=== PATIENT | female | born 1970 | race Caucasian/White ===

== ENCOUNTER → 2016-11-06 | Outpatient (CLI) | payer BC ==
--- NOTE | 2016-11-06 14:26 | MAM ---
EXAM DESCRIPTION: MAMMO BREAST SCREENING BILATERAL CAD, images were reviewed with CAD technology, R2 computer-aided detection. CLINICAL HISTORY: [facility]. COMPARISON: 2012. FINDINGS: Routine views are obtained. Mian views are also performed for mammographically benign appearing bilateral subpectoral implants. Glandular tissue has a scattered contour with the increased mammographic density. No significant change in overall distribution appearance. No dominant mass, architectural distortion or clustered microcalcification.. IMPRESSION: Benign exam. BIRAD CATEGORY: 2 BENIGN RECOMMENDATIONS: FOLLOW-UP: Routine screening mammogram in one year. According to the [employer], yearly mammograms are recommended starting at age 40 and continuing as long as a woman is in good health. Any breast change noted on a breast self-exam should be reported promptly to the patient's healthcare provider. Breast MRI is recommended for women with an approximately 20-25% or greater lifetime risk of breast cancer, including women with a strong family history of breast or ovarian cancer and women who have been treated for Hodgkin's disease. Electronically signed by: Sharmila Gabriel 11/06/2016 14:24
== END ==
LOC: MAMMO 10:40
PROVIDERS: ATTEND Obstetrics & Gynecology
DX: Z12.31 Encounter for screening mammogram for malignant neoplasm of breast (principal)

== ENCOUNTER → 2017-11-14 | Outpatient (CLI) | payer BC ==
--- NOTE | 2017-11-15 09:30 | MAM ---
EXAM DESCRIPTION: 3D Screening BILATERAL : Digital Mammography. CLINICAL HISTORY: 47 years Female SCREENING . No family history of breast cancer. No complaints. Premenopausal. No HRT. Prior left breast cyst aspiration and biopsy. Bilateral breast augmentation. COMPARISON: Bilateral 2-D digital screening mammography with Mian images 11/06/2016 and 10/22/2015. Report from prior examination also reviewed. TECHNIQUE: Bilateral CC and MLO projection full-field images, with Mian Implant Displacement 3-D tomosynthesis digital mammographic technique. Also bilateral synthesized CC/ MLO full-field images. Also with Mian Implant Displacement, CAD not utilized. 2-D digital full-field images, MLO and CC projections bilaterally, non-displaced, with CAD. FINDINGS: The breast parenchymal density pattern is: Heterogeneously dense breast tissue, which may obscure small masses. No skin thickening or nipple retraction focal asymmetry in the anterior third of the left breast lower inner quadrant, approximately 3 cm from the nipple on the implant displaced images. Not associated with microcalcifications. Surgical change in architecture since the prior study. No focal, stellate mass or density, focal asymmetry , and no suspicious microcalcifications right breast. IMPRESSION: BI-RADS CATEGORY: 0 - INCOMPLETE- Need additional imaging evaluation. FOLLOW-UP: Recall for additional imagin-D tomosynthesis left breast full-field standard and implant displacement images. Targeted left breast ultrasound of the region of interest.. Written communication concerning the IMPRESSION and Follow-up, will be mailed to the patient and referring health care provider. Electronically signed by: Tervon Patel MD 11/15/2017 9:29 AM CRACKING UNIT OPERATOR
== END | disposition home or self-care (01) ==
LOC: MAMMO 09:30
PROVIDERS: ATTEND Family Medicine
DX: Z12.31 Encounter for screening mammogram for malignant neoplasm of breast (principal)

== ENCOUNTER → 2017-12-04 | Outpatient (CLI) | payer BC ==
--- NOTE | 2017-12-05 14:18 | US ---
EXAM DESCRIPTION: Breast,Left: Ultrasound CLINICAL HISTORY: 47 yearsFemaleABN MAMMO. Lower inner quadrant anterior left breast. Previous biopsies in this breast. Bilateral breast augmentation. COMPARISON: Digital 3-D tomosynthesis diagnostic left mammography on the same visit . 3-D tomosynthesis bilateral screening study 11/14/2017. TECHNIQUE: Transcutaneous scanning of the left breast utilizing two-dimensional and Doppler modes. Scanning performed by the social services specialist and Dr. Patel. FINDINGS: Scanning in the region of the 500 clock position of the left breast, 3 cm from the nipple. Multiple foci of heterogeneous fibroglandular tissues are noted surrounding a predominantly by fatty tissues. Parallel orientation. Variable posterior acoustic features or none at all. Also a hypoechoic elongated object with central echogenicity which is most likely a lymph node. No hypoechoic or complex appearing solid masses with antiparallel features or significant posterior acoustic shadowing. No discrete cysts or calcifications. No skin changes. Included capsule of the implant was unremarkable. IMPRESSION: 1. Bi-Rads Category 3: Probably Benign Findings. 2. Please refer to 3-D tomosynthesis bilateral diagnostic mammographic examination and report on this visit. The FINDINGS and the FOLLOW-UP plan were reviewed in person with the patient after the examination. Written communication explaining the IMPRESSION and FOLLOW-UP will be mailed to the patient and referring care provider. Electronically signed by: Trevon Patel MD 12/05/2017 2:17 PM [facility]
--- NOTE | 2017-12-05 14:19 | MAM ---
EXAM DESCRIPTION: Diagnostic Mammo,Left: Digital Mammography CLINICAL HISTORY: 47 yearsFemaleABNORMAL MAMMO focal asymmetry left breast on screening study last month. COMPARISON: 3-D tomosynthesis bilateral screening study 11/14/2017. Reports from prior examinations also reviewed. Targeted left breast ultrasound following this examination. TECHNIQUE: Left LM projection full-field images with Mian displacement technique, 3-D tomosynthesis digital mammographic technique. Also left breast LM full-field images, 2-D without and 3-D synthesized image with Mian displacement. CAD utilized for 2-D non-Mian digital LM image. FINDINGS: The breast parenchymal density pattern is: Heterogeneously dense breast tissue, which may obscure small masses. Extremely dense breast tissue, which lowers the sensitivity of mammography. No skin thickening or nipple retraction focal asymmetry seen in the region of the 500 clock position in the retroareolar breast. Also probable lymph node more inferiorly. Ultrasound: Scanning in the region of the 500 clock position of the left breast, 3 cm from the nipple. Multiple foci of heterogeneous fibroglandular tissues are noted surrounding a predominantly by fatty tissues. Parallel orientation. Variable posterior acoustic features or none at all. Also a hypoechoic elongated object with central echogenicity which is most likely a lymph node. No hypoechoic or complex appearing solid masses with antiparallel features or significant posterior acoustic shadowing. No discrete cysts or calcifications. No skin changes. Included capsule of the implant was unremarkable. IMPRESSION: BI-RADS CATEGORY: 3 - PROBABLY BENIGN. Management: Short interval (6-month) follow-up digital mammography with continued left breast surveillance sonography. The FINDINGS and the FOLLOW-UP plan were reviewed in person with the patient after the examination. Written communication explaining the IMPRESSION and FOLLOW-UP will be mailed to the patient and referring care provider. Electronically signed by: Trevon Patel MD 12/05/2017 2:18 PM COMMERCIAL SALES MANAGER
== END ==
LOC: MAMMO 14:17
PROVIDERS: ATTEND Family Medicine
DX: R92.8 Other abnormal and inconclusive findings on diagnostic imaging of breast (principal)

== ENCOUNTER → 2018-03-11 | Outpatient (CLI) | payer BC | LOC: GMAJ 16:29 | PROVIDERS: ATTEND Family Medicine | DX: R10.13 Epigastric pain (principal) ==